=== PATIENT | female | born 1975 | race Hispanic/Latino ===

== ENCOUNTER 2018-05-30 13:16 | Outpatient (CLI) | payer MEDICARE ==
--- NOTE | 2018-05-30 17:13 | Magnetic Resonance Report ---
FINAL REPORT PROCEDURE: MR BRAIN WO/W CON TECHNIQUE: Magnetic resonance imaging of the brain was performed before and after the IV injection of paramagnetic contrast. Moderate motion degrades gradient sequence. HISTORY: Breast cancer. COMPARISON: No prior studies are available for comparison. FINDINGS: Skull base and calvarium: Normal. Paranasal sinuses: Minimal scattered ethmoid sinusitis. Slight rightward septal deviation. Cerebellum: No evidence of hemorrhage, ischemia or mass . Brainstem: No evidence of hemorrhage, ischemia or mass . Cerebrum: No evidence of hemorrhage, ischemia or mass . Ventricles: Normal in size and morphology for the patient's age. Pituitary gland and sella: Normal. Globes and orbits: Normal. Vasculature: Normal arterial and venous flow voids. Abnormal enhancement: None. Other: None. IMPRESSION: No MRI evidence of acute intracranial pathology. Minimal sinusitis.
== END 2018-05-30 13:17 | disposition home or self-care (01) ==
LOC: MRI 13:16
PROVIDERS: ATTEND Specialist
DX: R51 Headache (principal); F17.210 Nicotine dependence, cigarettes, uncomplicated
CPT/HCPCS: 70553; A9577